=== PATIENT | female | born 1960 | race Caucasian/White ===

== ENCOUNTER → 2019-09-23 09:55 | Outpatient (BNVA) | payer MEDICAID, SELFPAY | PROVIDERS: Family Provider Nurse Practitioner Family; PCP Nurse Practitioner Family; Visit Provider Nurse Practitioner | DX: M54.5 Low back pain (principal); M47.12 Other spondylosis with myelopathy, cervical region; M47.22 Other spondylosis with radiculopathy, cervical region; Z79.891 Long term (current) use of opiate analgesic | CPT/HCPCS: 99213; 99214 ==

== ENCOUNTER → 2019-11-24 14:28 | Outpatient (BNVA) | payer MEDICAID, SELFPAY | PROVIDERS: Family Provider Nurse Practitioner Family; PCP Nurse Practitioner Family; Visit Provider Anesthesiology | DX: M19.90 Unspecified osteoarthritis, unspecified site (principal); M25.50 Pain in unspecified joint; M47.12 Other spondylosis with myelopathy, cervical region; M47.22 Other spondylosis with radiculopathy, cervical region; M54.5 Low back pain; Z79.891 Long term (current) use of opiate analgesic | CPT/HCPCS: 99214 ==

== ENCOUNTER → 2020-03-14 13:55 | Outpatient (BNVA) | payer MEDICAID, SELFPAY | PROVIDERS: Family Provider Nurse Practitioner Family; PCP Nurse Practitioner Family; Visit Provider Anesthesiology | DX: M54.5 Low back pain (principal); M47.12 Other spondylosis with myelopathy, cervical region; M47.22 Other spondylosis with radiculopathy, cervical region; M25.50 Pain in unspecified joint; Z79.891 Long term (current) use of opiate analgesic | CPT/HCPCS: 99214 ==

== ENCOUNTER → 2020-04-03 09:01 | Outpatient (BNVA) | payer MEDICAID, SELFPAY | PROVIDERS: Family Provider Nurse Practitioner Family; PCP Nurse Practitioner Family; Visit Provider Anesthesiology | DX: M54.5 Low back pain (principal); M47.12 Other spondylosis with myelopathy, cervical region; M47.22 Other spondylosis with radiculopathy, cervical region; Z79.891 Long term (current) use of opiate analgesic | CPT/HCPCS: 99213; 99214 ==

== ENCOUNTER 2020-05-18 08:38 | Outpatient (CLI) | payer MEDICAID, SELFPAY ==
--- NOTE | 2020-05-18 08:44 | MM_ITS ---
WS: [id number] BILATERAL DIGITAL SCREENING MAMMOGRAPHY WITH CAD CLINICAL INFORMATION: SCREENING HISTORY: Screening mammogram. No current complaints. COMPARISON: TECHNIQUE: Bilateral CC and MLO views. FINDINGS: Scattered fibroglandular densities bilaterally. No suspicious focal mass, asymmetry, calcifications, or architectural distortion. No evidence of malignancy. Punctate calcification right breast. MM/[place] [id number] IMPRESSION: BI-RADS: 1-Negative FOLLOW UP: 1 Year Follow-up Recommend return to annual screening mammography.
== END 2020-05-18 08:39 | disposition home or self-care (01) ==
LOC: RADSHAW 08:41
PROVIDERS: PCP Nurse Practitioner Family; Visit Provider Nurse Practitioner Family
DX: Z12.31 Encounter for screening mammogram for malignant neoplasm of breast (principal)
CPT/HCPCS: 77067

== ENCOUNTER → 2020-05-31 09:24 | Outpatient (BNVA) | payer MEDICAID, SELFPAY | PROVIDERS: Family Provider Nurse Practitioner Family; PCP Nurse Practitioner Family; Visit Provider Nurse Practitioner | DX: M54.41 Lumbago with sciatica, right side (principal); M54.42 Lumbago with sciatica, left side; M47.12 Other spondylosis with myelopathy, cervical region; M47.22 Other spondylosis with radiculopathy, cervical region; M79.7 Fibromyalgia; M06.9 Rheumatoid arthritis, unspecified; Z79.891 Long term (current) use of opiate analgesic | CPT/HCPCS: 99213; 99214 ==

== ENCOUNTER → 2020-07-03 09:31 | Outpatient (BNVA) | payer MEDICAID, SELFPAY | PROVIDERS: Family Provider Nurse Practitioner Family; PCP Nurse Practitioner Family; Visit Provider Anesthesiology | DX: M54.5 Low back pain (principal); M47.12 Other spondylosis with myelopathy, cervical region; M47.22 Other spondylosis with radiculopathy, cervical region; M79.7 Fibromyalgia; Z79.891 Long term (current) use of opiate analgesic | CPT/HCPCS: 99214 ==

== ENCOUNTER → 2020-08-28 12:27 | Outpatient (BNVA) | payer MEDICAID, SELFPAY | PROVIDERS: Family Provider Nurse Practitioner Family; PCP Nurse Practitioner Family; Visit Provider Nurse Practitioner | DX: M54.5 Low back pain (principal); M70.62 Trochanteric bursitis, left hip; M47.12 Other spondylosis with myelopathy, cervical region; M47.22 Other spondylosis with radiculopathy, cervical region; M79.7 Fibromyalgia; M25.562 Pain in left knee; M06.9 Rheumatoid arthritis, unspecified; Z79.891 Long term (current) use of opiate analgesic; Y93.9 Activity, unspecified | CPT/HCPCS: 99214 ==

== ENCOUNTER 2020-08-31 08:32 | Outpatient (CLI) | payer MEDICAID, SELFPAY ==
--- NOTE | 2020-08-31 08:39 | XR_ITS ---
WS: [id number] Bilateral hips, AP and frog leg views, 08/31/2020 Clinical Data: M25.50 - Pain in unspecified joint Comparison: Right hip, 12/13/2013. Left hip, 12/13/2013. Findings: Right hip: There is a prominent lateral lip of the right acetabulum. No fractures or dislocations are seen. No n arrowing, erosion or sclerosis is noted. The adjacent right pelvis is unremarkable. The right SI join t and pubic symphysis are normal. The soft tissues unremarkable. Left hip: There is a prominent lateral lip of the left acetabulum. No fractures or dislocations are seen. No na rrowing, erosion or sclerosis is noted. The adjacent left pelvis is unremarkable. The left SI joints normal. The soft tissues are unremarkable. XR/XR hip BI 3-4V wo/w pel [id number] Impression: Bilateral acetabular osteoarthritic lips.
--- NOTE | 2020-08-31 08:39 | XR_ITS ---
WS: [id number] AP views of both knees standing, 08/31/2020 Clinical Data: M25.562 - Pain in left knee Comparison: Right knee and left knee, 12/13/2013. Findings: The AP views of both knees are unremarkable. There is no joint space narrowing. No erosion or scleros is is seen. The AP views of the patellas are normal. The soft tissues are unremarkable. XR/[place] [id number] Impression: Negative AP views of both knees.
== END 2020-08-31 08:33 | disposition home or self-care (01) ==
LOC: RADWPI 08:36
PROVIDERS: PCP Nurse Practitioner Family; Visit Provider Nurse Practitioner
DX: M25.50 Pain in unspecified joint (principal); M70.62 Trochanteric bursitis, left hip; M25.562 Pain in left knee
CPT/HCPCS: 73522; 73565

== ENCOUNTER → 2020-09-27 09:35 | Outpatient (BNVA) | payer MEDICAID, SELFPAY | PROVIDERS: PCP Nurse Practitioner Family; Visit Provider Anesthesiology | DX: G89.29 Other chronic pain (principal); M53.3 Sacrococcygeal disorders, not elsewhere classified; M70.62 Trochanteric bursitis, left hip; Y93.9 Activity, unspecified; Z79.891 Long term (current) use of opiate analgesic | CPT/HCPCS: G0260; J1040; J3490 ==

== ENCOUNTER → 2020-11-07 08:51 | Outpatient (BNVA) | payer MEDICAID, SELFPAY | PROVIDERS: PCP Nurse Practitioner Family; Visit Provider Anesthesiology | DX: G89.29 Other chronic pain (principal); M47.12 Other spondylosis with myelopathy, cervical region; M47.22 Other spondylosis with radiculopathy, cervical region; M54.5 Low back pain; M79.7 Fibromyalgia; M53.3 Sacrococcygeal disorders, not elsewhere classified; Z79.899 Other long term (current) drug therapy; Z79.891 Long term (current) use of opiate analgesic | CPT/HCPCS: 99214 ==

== ENCOUNTER → 2021-01-04 12:35 | Outpatient (BNVA) | payer MEDICAID, SELFPAY | PROVIDERS: PCP Nurse Practitioner Family; Visit Provider Nurse Practitioner | DX: G89.29 Other chronic pain (principal); M47.12 Other spondylosis with myelopathy, cervical region; M47.22 Other spondylosis with radiculopathy, cervical region; M54.5 Low back pain; M79.7 Fibromyalgia; M53.3 Sacrococcygeal disorders, not elsewhere classified; M70.62 Trochanteric bursitis, left hip; Y93.9 Activity, unspecified; M25.562 Pain in left knee; M06.9 Rheumatoid arthritis, unspecified; Z79.891 Long term (current) use of opiate analgesic | CPT/HCPCS: 99213 ==

== ENCOUNTER → 2021-03-19 13:19 | Outpatient (BNVA) | payer MEDICAID, SELFPAY | PROVIDERS: PCP Nurse Practitioner Family; Visit Provider Nurse Practitioner | DX: G89.29 Other chronic pain (principal); M70.62 Trochanteric bursitis, left hip; M54.5 Low back pain; M47.12 Other spondylosis with myelopathy, cervical region; M47.22 Other spondylosis with radiculopathy, cervical region; M53.3 Sacrococcygeal disorders, not elsewhere classified; Y93.9 Activity, unspecified; Z79.891 Long term (current) use of opiate analgesic | CPT/HCPCS: 99213 ==

== ENCOUNTER → 2021-05-09 10:39 | Outpatient (BNVA) | payer MEDICAID, SELFPAY | PROVIDERS: PCP Nurse Practitioner Family; Visit Provider Nurse Practitioner | DX: G89.29 Other chronic pain (principal); M54.5 Low back pain; M70.62 Trochanteric bursitis, left hip; M25.562 Pain in left knee; M06.9 Rheumatoid arthritis, unspecified; M79.7 Fibromyalgia; M47.12 Other spondylosis with myelopathy, cervical region; M47.22 Other spondylosis with radiculopathy, cervical region; M53.3 Sacrococcygeal disorders, not elsewhere classified; Y93.9 Activity, unspecified; Z79.891 Long term (current) use of opiate analgesic | CPT/HCPCS: 99214 ==

== ENCOUNTER → 2021-06-20 13:04 | Outpatient (BNVA) | payer MEDICAID, SELFPAY | PROVIDERS: PCP Nurse Practitioner Family; Visit Provider Internal Medicine | DX: M06.9 Rheumatoid arthritis, unspecified (principal); Z79.899 Other long term (current) drug therapy; Z11.59 Encounter for screening for other viral diseases; Z11.1 Encounter for screening for respiratory tuberculosis; M54.2 Cervicalgia; M54.9 Dorsalgia, unspecified; G89.29 Other chronic pain | CPT/HCPCS: 36415; 99203; 99204 ==

== ENCOUNTER 2021-06-20 15:14 | Outpatient (CLI) | payer MEDICAID, SELFPAY ==
--- NOTE | 2021-06-20 15:30 | XR_ITS ---
WS: [email or web address] XR hand LT 2V [id number] REASON FOR EXAM: M25.50 - Pain in unspecified joint FINDINGS: Mild changes of osteoarthritis in the PIP and DIP joints of the fingers with mild joint space narrowi ng and mild osteophytic spurring. Similar mild changes seen in the joints of the thumb. No other significant bony or joint abnormality. XR/XR hand LT 2V [id number] IMPRESSION: Mild osteoarthritis left hand as above.
--- NOTE | 2021-06-20 15:30 | XR_ITS ---
WS: [email or web address] XR hand RT 2V [id number] REASON FOR EXAM: M25.50 - Pain in unspecified joint FINDINGS: There are mild changes of osteoarthritis in the DIP and PIP joints of the fingers with mild joint spa ce narrowing and osteophytic spurring. Similar arthropathic changes are seen in the joints of the thumb. No focal bone abnormality. No soft tissue abnormality. XR/XR hand RT 2V [id number] IMPRESSION: Mild osteoarthritis the right hand as above.
== END 2021-06-20 15:15 | disposition home or self-care (01) ==
LOC: RAD 15:19
PROVIDERS: PCP Nurse Practitioner Family; Visit Provider Internal Medicine
DX: M25.50 Pain in unspecified joint (principal)
CPT/HCPCS: 73120; 80053; 85025; 86200; 86431; 86480; 86704; 86803; 87340

== ENCOUNTER 2021-06-27 13:40 | Outpatient (CLI) | payer MEDICAID, SELFPAY ==
--- NOTE | 2021-06-27 13:46 | MM_ITS ---
WS: [id number] BILATERAL SCREENING DIGITAL MAMMOGRAM WITH CAD HISTORY: SCREENING COMPARISON: 05/18/2020 and 02/10/2019 Bilateral CC and MLO views submitted. Computer aided detection analyzed. Breast composition: There are scattered areas of fibroglandular density. No suspicious masses, microc alcifications or architectural distortion. Benign calcification in the central RIGHT breast. MM/[place] [id number] IMPRESSION: BI-RADS: 2-Benign FOLLOW UP: 1 Year Follow-up
== END 2021-06-27 13:41 | disposition home or self-care (01) ==
LOC: RADSHAW 13:44
PROVIDERS: PCP Nurse Practitioner Family; Visit Provider Nurse Practitioner Family
DX: Z12.31 Encounter for screening mammogram for malignant neoplasm of breast (principal)
CPT/HCPCS: 77067

== ENCOUNTER → 2021-07-08 14:15 | Outpatient (BNVA) | payer MEDICAID, SELFPAY | PROVIDERS: PCP Nurse Practitioner Family; Visit Provider Internal Medicine | DX: M25.50 Pain in unspecified joint (principal); M79.7 Fibromyalgia; Z79.899 Other long term (current) drug therapy | CPT/HCPCS: 36415; 82306; 82533; 82550; 82728; 83540; 83735; 84100; 99214 ==

== ENCOUNTER → 2021-07-18 12:48 | Outpatient (BNVA) | payer MEDICAID, SELFPAY | PROVIDERS: PCP Nurse Practitioner Family; Visit Provider Anesthesiology | DX: M47.12 Other spondylosis with myelopathy, cervical region (principal); M47.22 Other spondylosis with radiculopathy, cervical region; M53.3 Sacrococcygeal disorders, not elsewhere classified; Z79.899 Other long term (current) drug therapy; Z79.891 Long term (current) use of opiate analgesic | CPT/HCPCS: 99214 ==

== ENCOUNTER → 2021-09-18 12:53 | Outpatient (BNVA) | payer MEDICAID, SELFPAY | PROVIDERS: PCP Nurse Practitioner Family; Visit Provider Anesthesiology | DX: G89.29 Other chronic pain (principal); M54.50 Low back pain, unspecified; M47.12 Other spondylosis with myelopathy, cervical region; M47.22 Other spondylosis with radiculopathy, cervical region; M53.3 Sacrococcygeal disorders, not elsewhere classified; G62.9 Polyneuropathy, unspecified; Z79.899 Other long term (current) drug therapy; Z79.891 Long term (current) use of opiate analgesic | CPT/HCPCS: 99214 ==

== ENCOUNTER 2021-10-07 12:01 | Outpatient (CLI) | payer MEDICAID, SELFPAY ==
--- NOTE | 2021-10-07 12:05 | XR_ITS ---
WS: [email or web address] SI JOINTS TECHNIQUE: 3 views of the sacroiliac joints CLINICAL INFORMATION: L40.9 - Psoriasis, unspecified COMPARISON: None. FINDINGS: Mild degenerative arthritis both sacroiliac joints with slight hypertrophic changes. No significant p eriarticular erosions. Mild degenerative narrowing both hips with hypertrophic spurring about the lorena tabulum. XR/XR sacroiliac jts m 3V [id number] IMPRESSION: 1. Mild degenerative arthritis both sacroiliac joints with slight hypertrophic changes. 2. No significant periarticular erosions
[2021-10-07 13:51] LABS: C Reactive Protein 2.9 mg/L (0.0-4.9); Thyroid Stimulating Hormone 2.11 uIU/mL (0.27-4.20)
[2021-10-07 13:52] LABS: Erythrocyte Sedimentation Rate 10 mm/hr (0-15)
[2021-10-08 12:29] LABS: COMPLEMENT COMPONENT C3C 170 mg/dL (83-193); COMPLEMENT COMPONENT C4C 26 mg/dL (15-57)
[2021-10-08 14:27] LABS: THYROID PEROXIDASE ANTIBODIES 1 IU/mL (<9)
[2021-10-08 15:23] LABS: CENTROMERE B ANTIBODY <1.0 NEG AI (<1.0 NEG); JO-1 ANTIBODY <1.0 NEG AI (<1.0 NEG); RNP ANTIBODY <1.0 NEG AI (<1.0 NEG); SCL-70 ANTIBODY <1.0 NEG AI (<1.0 NEG); SJOGREN'S ANTIBODY (SS-A) <1.0 NEG AI (<1.0 NEG); SM ANTIBODY <1.0 NEG AI (<1.0 NEG); SS-B <1.0 NEG AI (<1.0 NEG)
[2021-10-09 13:04] LABS: COMPLEMENT, TOTAL (CH50) 57 U/mL (31-60)
[2021-10-10 08:22] LABS: ANA PATTERN Nuclear, Speckled; ANA SCREEN, IFA POSITIVE (NEGATIVE); ANA TITER 1:40 titer
[2021-10-10 13:13] LABS: HLA-B27 NEGATIVE (NEGATIVE)
[2021-10-11 10:37] LABS: DNA AB (DS) CRITHIDIA,IFA NEGATIVE (NEGATIVE)
== END 2021-10-07 12:02 | disposition home or self-care (01) ==
LOC: RAD 12:04
PROVIDERS: PCP Nurse Practitioner Family; Visit Provider Internal Medicine
DX: M06.9 Rheumatoid arthritis, unspecified (principal); R21 Rash and other nonspecific skin eruption; Z85.41 Personal history of malignant neoplasm of cervix uteri; Z90.710 Acquired absence of both cervix and uterus; G89.29 Other chronic pain; L40.9 Psoriasis, unspecified; M53.3 Sacrococcygeal disorders, not elsewhere classified; M46.1 Sacroiliitis, not elsewhere classified
CPT/HCPCS: 36415; 72202; 83516; 84443; 85651; 86140; 86160; 86162; 86235; 86255; 86376; 86812; 99214

== ENCOUNTER → 2021-11-13 14:20 | Outpatient (BNVA) | payer MEDICAID, SELFPAY | PROVIDERS: PCP Nurse Practitioner Family; Visit Provider Internal Medicine | DX: M19.90 Unspecified osteoarthritis, unspecified site (principal); M53.3 Sacrococcygeal disorders, not elsewhere classified; G89.29 Other chronic pain | CPT/HCPCS: 99214 ==

== ENCOUNTER → 2021-11-20 14:31 | Outpatient (BNVA) | payer MEDICAID, SELFPAY | PROVIDERS: PCP Nurse Practitioner Family; Visit Provider Internal Medicine Cardiovascular Disease | DX: R07.9 Chest pain, unspecified (principal); R00.2 Palpitations; M06.9 Rheumatoid arthritis, unspecified; R53.83 Other fatigue; R06.02 Shortness of breath; Z87.891 Personal history of nicotine dependence | CPT/HCPCS: 99204 ==

== ENCOUNTER 2021-12-30 13:42 | Outpatient (CLI) | payer MEDICAID, SELFPAY ==
--- NOTE | 2021-12-30 14:15 | USCV_ITS ---
Jody Grubbs Age: 61 Gender: F : 1960 Exam Date: 12/30/2021 14:20 Ordering Phys: Yuridia Chan MD ([email or web address]) Technologist: Exam Location: [facility] – [place] Indication: palp BP: 132 / 76 HR: 84 Rhythm: Sinus Technical Quality: Adequate MEASUREMENTS (Male / Female) Normal Values 2D ECHO LV Diastolic Diameter PLAX 4.0 cm 4.2 - 5.9 / 3.9 - 5.3 cm LV Systolic Diameter PLAX 2.7 cm IVS Diastolic Thickness 1.1 cm 0.6 - 1.0 / 0.6 - 0.9 cm IVS Systolic Thickness 1.2 cm LVPW Diastolic Thickness 1.1 cm 0.6 - 1.0 / 0.6 - 0.9 cm LVPW Systolic Thickness 1.4 cm LVOT Diameter 2.0 cm LV Ejection Fraction 2D Teich 61.7 % LV Ejection Fraction MOD 2C 73.5 % LV Ejection Fraction 2C AL 73.5 % LA Diameter 3.5 cm LA Width 3.3 cm LA Height 4.1 cm RA Width 3.4 cm RA Height 3.9 cm Aorta at Sinotubular Diameter 2.3 cm M-MODE Aortic Annulus Diameter 2.7 cm LA Ao Ratio MM 1.5 MV E Point Septal Separation 0.7 cm DOPPLER MV Area PHT 5.0 cm squared Mitral E to A Ratio 0.7 MV E' Velocity 29.5 cm/s Mitral E to MV E' Ratio 6.2 Mitral E to LV E' Lateral Ratio 5.8 Mitral E to LV E' Septal Ratio 6.8 TR Peak Velocity 191.0 cm/s TR Peak Gradient 14.6 mmHg TV Peak E Velocity 89.0 cm/s Right Atrial Pressure 3.0 mmHg Pulmonary Artery Systolic Pressu 17.6 mmHg PV Peak Velocity 158.0 cm/s FINDINGS Left Ventricle Normal left ventricular size and systolic function, EF 72 %. No regional wall motion abnormalities. Right Ventricle The right ventricle is normal in size and function. Right Atrium The right atrium is normal in size. Left Atrium The left atrium is normal in size. Mitral Valve Trace mitral valve regurgitation. Aortic Valve No gross abnormalities noted Tricuspid Valve No gross abnormalities noted Pulmonic Valve No gross abnormalities noted Pericardium Normal pericardium without effusion. Aorta Normal ascending aorta dimension. CONCLUSIONS Normal left ventricular size and systolic function, EF 72 %. No regional wall motion abnormalities. Normal cardiac chamber sizes Trace mitral valve regurgitation. There is no pericardial effusion. There are no intracardiac masses. No previous study is available for comparison. Dr Yuridia Chan MD [facility] (Electronically Signed) Final Date: 30 December 2021 17:19 S
== END 2021-12-30 13:43 | disposition home or self-care (01) ==
LOC: RAD 13:42
PROVIDERS: PCP Nurse Practitioner Family; Visit Provider Internal Medicine Cardiovascular Disease
DX: I34.0 Nonrheumatic mitral (valve) insufficiency (principal); R06.02 Shortness of breath; R06.00 Dyspnea, unspecified
CPT/HCPCS: 93306

== ENCOUNTER 2022-01-06 07:37 | Outpatient (CLI) | payer MEDICAID, SELFPAY ==
--- NOTE | 2022-01-06 07:47 | MR_ITS ---
WS: [id number] MRI LUMBAR SPINE NONCONTRAST TECHNIQUE: Sagittal T1, T2 and STIR imaging. Axial T1 and T2 imaging. CLINICAL INFORMATION: VERTEBROGENIC LOW BACK PAIN COMPARISON: April 05, 2008 FINDINGS: Mild lumbar curve. No acute compression. No high-grade central canal stenosis. L1-L2: Normal L2-L3: Normal. L3-L4: Mild annular bulging. Slight effacement of ventral thecal sac. LEFT foraminal protrusion with mild LEFT foraminal narrowing. Slight impingement on the exiting LEFT L3 nerve root. RIGHT foramen is patent. Mild facet arthropathy. L4-L5: Mild annular bulging. Slight effacement of ventral thecal sac. Mild LEFT foraminal narrowing. Spinal canal and RIGHT foramen are patent. Mild to moderate facet arthropathy. L5-S1: Minimal disc bulging. Moderate facet arthropathy. Spinal canal and foramen are patent. Hypertrophic changes LEFT sacroiliac joint. Visualized pelvic bony structures: Normal. Paravertebral soft tissues: Normal. MR/MR lumbar spine wo con* [id number] IMPRESSION: 1. Small LEFT foraminal protrusion L3-L4 impinges the exiting LEFT L3 nerve ro ot with mild LEFT foraminal narrowing. Recommend correlation LEFT L3 nerve root symptoms. This is new from 2008 2. Mild LEFT L4-L5 foraminal narrowing. 3. Moderate facet arthropathy worse at RIGHT L5-S1. 4. Hypertrophic changes LEFT sacroiliac joint.
--- NOTE | 2022-01-06 07:47 | XR_ITS ---
WS: [id number] Lumbar spine with flexion, extension, and neutral lateral, 01/06/2022 Clinical Data: VERTEBROGENIC LOW BACK PAIN Comparison: Lumbar spine, 08/16/2015. Findings: No compression fractures or subluxation is seen. No disc space narrowing is seen. No limitation of motion or subluxation is seen. There are upper abdominal clips probably from a cholecystectomy. XR/XR lumbar spine f/e only [id number] Impression: Negative lateral lumbar spine.
== END 2022-01-06 07:38 | disposition home or self-care (01) ==
LOC: RAD 07:38
PROVIDERS: PCP Nurse Practitioner Family; Visit Provider Nurse Practitioner
DX: M54.51 Vertebrogenic low back pain (principal); M51.26 Other intervertebral disc displacement, lumbar region; M48.061 Spinal stenosis, lumbar region without neurogenic claudication; M47.817 Spondylosis without myelopathy or radiculopathy, lumbosacral region
CPT/HCPCS: 72120; 72148

== ENCOUNTER → 2022-03-04 14:08 | Outpatient (BNVA) | payer MEDICAID, SELFPAY | PROVIDERS: PCP Nurse Practitioner Family; Visit Provider Internal Medicine Cardiovascular Disease | DX: R00.2 Palpitations (principal); R07.89 Other chest pain; R06.02 Shortness of breath; R53.83 Other fatigue | CPT/HCPCS: 99213; 99214 ==

== ENCOUNTER 2022-06-30 07:56 | Outpatient (CLI) | payer MEDICAID, SELFPAY ==
--- NOTE | 2022-06-30 08:11 | MM_ITS ---
WS: [id number] BILATERAL SCREENING DIGITAL TOMOSYNTHESIS MAMMOGRAM WITH CAD HISTORY: SCREEN COMPARISON: 06/27/2021, 05/18/2020 Bilateral CC and MLO views with tomosynthesis and synthetic mammography submitted. Computer aided det ection analyzed. Breast composition: There are scattered areas of fibroglandular density. No suspicious masses, microc alcifications or architectural distortion. MM/[place] [id number] IMPRESSION: BI-RADS: 2-Benign FOLLOW UP: 1 Year Follow-up
== END 2022-06-30 07:57 | disposition home or self-care (01) ==
LOC: RAD 07:56
PROVIDERS: PCP Nurse Practitioner Family; Visit Provider Nurse Practitioner Family
DX: Z12.31 Encounter for screening mammogram for malignant neoplasm of breast (principal)
CPT/HCPCS: 77063; 77067

== ENCOUNTER 2022-10-23 09:06 | Outpatient (CLI) | payer MEDICAID, SELFPAY ==
--- NOTE | 2022-10-23 09:11 | US_ITS ---
WS: [email or web address] ULTRASOUND ABDOMEN LIMITED CLINICAL INFORMATION: ABDOMINAL WALL BULGE COMPARISON: None. FINDINGS: In the area of clinical concern, upper midline abdomen, there is an epigastric abdominal wall hernia containing fatty tissue. No herniated bowel. Hernia mouth measures approximately 2.5 x 1.8 cm. Hernia aron fat measures 3.8 x 4.7 x 2.3 cm No associated fluid collections. Motion is seen with Valsalva. No other suspicious findings. Findings can be further evaluated with CT abdomen pelvis for better anatomic detail. IMPRESSION: 1. Fat-containing epigastric abdominal wall hernia in the area of concern containing fatty tissue. N o visualized herniated bowel. 2. No associated fluid collections. 3. Hernia mouth measures 2.5 x 1.8 CM.
== END 2022-10-23 09:07 | disposition home or self-care (01) ==
LOC: RAD 09:07
PROVIDERS: PCP Nurse Practitioner Family; Visit Provider Nurse Practitioner Family
DX: R19.00 Intra-abdominal and pelvic swelling, mass and lump, unspecified site (principal)
CPT/HCPCS: 76705

== ENCOUNTER → 2022-11-18 08:30 | Outpatient (BNVA) | payer MEDICAID, SELFPAY | PROVIDERS: PCP Nurse Practitioner Family; Referring Provider Nurse Practitioner Family; Visit Provider Surgery | DX: K43.2 Incisional hernia without obstruction or gangrene (principal) | CPT/HCPCS: 99203 ==

== ENCOUNTER 2022-12-22 05:50 | Day surgery (SDC) | payer MEDICAID, SELFPAY ==
[2022-12-19 10:54] VITALS: BMI 36.3
[2022-12-22] VITALS (16 sets, daily range): BP systolic 109–162; BP diastolic 53–98; PULSE 70–80; RESP 16–18; TEMP 36.1–36.9; O2SAT 92–98
[2022-12-22] MEDS: sodium chloride 0.9% 1,000 ML 30 ML IV (06:18)
--- NOTE | 2022-12-22 06:39 | P.HP_ITS ---
Providers/Chief Complaint Primary Care Provider: Rachelle Liu APN Chief Complaint: K43.2 History of Present Illness Jody Grubbs is a 62 year old female here for Laparoscopic repair of incisional hernia repair with mesh Medications/Allergies Home Medications Medication Instructions Recorded Confirmed Last Taken Type escitalopram oxalate 10 mg tablet 10 mg PO ONCE 09/22/19 12/22/22 12/20/22 22:00 History (Lexapro) escitalopram oxalate 20 mg tablet 20 mg PO ONCE 09/22/19 12/22/22 12/21/22 08:00 History (Lexapro) oxycodone 10 mg tablet 10 mg PO TID PRN pain 30 days #70 09/18/21 12/22/22 12/21/22 18:00 Rx tabs pregabalin 100 mg capsule 100 mg PO BID neuropathy 30 days 09/18/21 12/22/22 12/21/22 08:00 Rx #60 caps cetirizine 10 mg tablet 10 mg PO DAILY 11/20/21 12/22/22 12/21/22 History fenofibrate 160 mg tablet 160 mg PO DAILY 11/20/21 12/22/22 12/21/22 12:00 History omeprazole 20 mg capsule,delayed 20 mg PO PRN PRN Heartburn 11/20/21 12/22/22 Unknown History release pravastatin 10 mg tablet 10 mg PO DAILY 11/20/21 12/22/22 12/20/22 History ropinirole 1 mg tablet 1 mg PO DAILY PRN Restless Leg(S) 11/20/21 12/19/22 Unknown History albuterol sulfate 90 mcg/actuation 2 puff inhalation QID PRN 01/29/22 12/22/22 12/20/22 Rx aerosol inhaler (ProAir HFA) shortness of breath or wheezing #8.5 grams budesonide-formoterol HFA 160 2 puff inhalation Q12H #10.2 grams 01/29/22 12/22/22 12/21/22 Rx mcg-4.5 mcg/actuation aerosol inhaler (Symbicort) levothyroxine 100 mcg tablet 100 mcg PO DAILY 03/04/22 12/22/22 12/21/22 08:00 History acyclovir 400 mg tablet 400 mg PO TID PRN Rash 12/22/22 12/22/22 Unknown History Allergies Allergy/AdvReac Type Severity Reaction Status Date / Time Sulfa (Sulfonamide AdvReac unknown Verified 12/22/22 06:01 Antibiotics) trazodone AdvReac makes Verified 12/22/22 06:01 her mean PFSH Acute PFSH: Medical History Arthralgia Cervical spondylosis with myelopathy and radiculopathy Chronic left SI joint pain Encounter for long-term opiate analgesic use Long-term use of high-risk medication continue to monitor use of medication Lumbar spine pain Surgical History Hx of section Hx of cholecystectomy Hx of dilation and curettage S/P hysterectomy Cervical cancer S/P tubal ligation Family History Mother , M/I CAD (coronary artery disease), Onset Age: 60 Hyperlipidemia Hypertension Rheumatoid arthritis Myocardial infarction Father Stroke Daughter Rheumatoid arthritis Family/Other Cancer Denies family history of Diabetes Clotting disorder Dementia Chronic kidney disease (CKD) Suicide Anesthesia complication Bleeding disorder Lung disease Social History Smoking and tobacco status: former smoker Second hand smoke exposure: No Alcohol intake: never Vitals/I&O/Wt Last Vital Signs Temp 98.4 F 12/22/22 06:12 Pulse 70 12/22/22 06:12 Resp 17 12/22/22 06:12 BP 151/76 12/22/22 06:12 Pulse Ox 96 12/22/22 06:12 O2 Del Method 12/22/22 06:12 A&P Assessment and plan (1) Incisional hernia: Plan Laparoscopic repair of incisional hernia repair with mesh Attestations Medical Necessity Statement*: Home Coding Level of Care Code Acute Code for [facility] Diagnoses Incisional hernia K43.2
--- NOTE | 2022-12-22 07:03 | P.ANESASSM_ITS ---
Pre-Anesthetic Assessment Height/Weight: Height 1.52 m Weight 84.368 kg Temp Pulse Resp BP Pulse Ox O2 Del Method 98.4 F 70 17 151/76 96 12/22/22 06:12 12/22/22 06:12 12/22/22 06:12 12/22/22 06:12 12/22/22 06:12 12/22/22 06:12 Preop Diagnosis: Incisional hernia Operation Date: 12/22/22 07:00 Proposed Procedures p lap incisional hernia repair w mesh 4959,K43.2(Not Applicable) - Gurvinder Almonte DO Familial anesthetic complications: None Was Beta Raheem taken within 24 hours: N/A Was Clonidine taken within 24 hours: N/A Last intake: Intake Last Liquid Date 12/21/22 Last Liquid Time 23:00 Last Solid Date 12/21/22 Last Solid Time 20:00 Social No alcohol and No tobacco Exam alert, oriented x 3, clear to auscultation bilaterally and regular rate & rhythm Airway Mallampati: Class III Dentition: full Pulmonary Asthma hx bronchitis CV/HEM Patient's insurance has denied stress testing twice. Spoke with Dr. Chan regarding risk of proceeding. He states that echo and holter results are re-assuring, but an element of unknown risk of CAD exists. States if patieint remains asymptomatic, its reasonable to proceed if patient is accepting of unknown risk. I had converstion with patient regarding the lack of stress test and Dr. Chan's sentiments of reassuring prior cardiac testing, but unknown risk of CAD given lack of stress test. I offered her option of postponing procedure to await stress test or proceeding today with unknown risk. Patient chose to proceed today, especially given insurance's denial of stress test twice. 12/30/21?CV. echo complete ?Normal left ventricular size and systolic function, EF 72 %. ?No regional wall motion abnormalities. ?Normal cardiac chamber sizes ?Trace mitral valve regurgitation. ?There is no pericardial effusion. ?There are no intracardiac masses. ?No previous study is available for comparison. ?06/28/21 Holter Monitor 1) The predominant rhythm was sinus bradycardia to sinus tachycardia with 1st degree AVB. 2) The Maximum Heart Rate recorded was 117 bpm, Day :44:47 pm, the GI Gastroesophageal Reflux Disease Metabolic Morbid Obesity and Thyroid Disease [facility] [place] Rheumatoid Arthritis Anesthetic Plan ASA status: 3 Anesthesia: General Risk of > 500 ml blood loss (7ml/kg in children): No Medications/Allergies Home Medications Medication Instructions Recorded Confirmed Last Taken Type escitalopram oxalate 10 mg tablet 10 mg PO ONCE 09/22/19 12/22/22 12/20/22 22:00 History (Lexapro) escitalopram oxalate 20 mg tablet 20 mg PO ONCE 09/22/19 12/22/22 12/21/22 08:00 History (Lexapro) oxycodone 10 mg tablet 10 mg PO TID PRN pain 30 days #70 09/18/21 12/22/22 12/21/22 18:00 Rx tabs pregabalin 100 mg capsule 100 mg PO BID neuropathy 30 days 09/18/21 12/22/2206/06 08:00 Rx #60 caps cetirizine 10 mg tablet 10 mg PO DAILY 11/20/21 12/22/22 12/21/22 History fenofibrate 160 mg tablet 160 mg PO DAILY 11/20/21 12/22/22 12/21/22 12:00 History omeprazole 20 mg capsule,delayed 20 mg PO PRN PRN Heartburn 11/20/21 12/22/22 Unknown History release pravastatin 10 mg tablet 10 mg PO DAILY 11/20/21 12/22/22 12/20/22 History ropinirole 1 mg tablet 1 mg PO DAILY PRN Restless Leg(S) 11/20/21 12/19/22 Unknown History albuterol sulfate 90 mcg/actuation 2 puff inhalation QID PRN 01/29/22 12/22/22 12/20/22 Rx aerosol inhaler (ProAir HFA) shortness of breath or wheezing #8.5 grams budesonide-formoterol HFA 160 2 puff inhalation Q12H #10.2 grams 01/29/22 12/22/22 12/21/22 Rx mcg-4.5 mcg/actuation aerosol inhaler (Symbicort) levothyroxine 100 mcg tablet 100 mcg PO DAILY 03/04/22 12/22/22 12/21/22 08:00 History acyclovir 400 mg tablet 400 mg PO TID PRN Rash 12/22/22 12/22/22 Unknown History Allergies Allergy/AdvReac Type Severity Reaction Status Date / Time Sulfa (Sulfonamide AdvReac unknown Verified 12/22/22 06:01 Antibiotics) trazodone AdvReac makes Verified 12/22/22 06:01 her mean Current Medications Generic Name Dose Route Start Last Admin Trade Name Alissa PRN Reason Stop Dose Admin Sodium Chloride 1,000 mls @ 30 mls/hr 12/22/22 06:00 12/22/22 06:18 Sodium Chloride 0.9% IV 12/23/22 05:59 30 mls/hr .Q24H GLYNN Administration PFSH Anesthesia Medical History Arthralgia Cervical spondylosis with myelopathy and radiculopathy Chronic left SI joint pain Encounter for long-term opiate analgesic use Long-term use of high-risk medication continue to monitor use of medication Lumbar spine pain Surgical History Hx of section Hx of cholecystectomy Hx of dilation and curettage S/P hysterectomy Cervical cancer S/P tubal ligation Family History Mother , M/I CAD (coronary artery disease), Onset Age: 60 Hyperlipidemia Hypertension Rheumatoid arthritis Myocardial infarction Father Stroke Daughter Rheumatoid arthritis Family/Other Cancer Denies family history of Diabetes Clotting disorder Dementia Chronic kidney disease (CKD) Suicide Anesthesia complication Bleeding disorder Lung disease Social History Smoking and tobacco status: former smoker Second hand smoke exposure: No Alcohol intake: never Data Anesthesia Cardiac Studies: Echocardiogram 12/30/21 Holter Monitor 06/28/21
[2022-12-22] MEDS: ceFAZolin 2,000 MG in sodium chloride 0.9% (plus) 50 ML 100 MG IV (07:08)
[2022-12-22] MEDS: lidocaine-epi 2% 20 mL INJ INJECTION (08:03)
--- NOTE | 2022-12-22 08:11 | PM.OP ---
Operative Report Date of procedure: December 22, 2022 Pre-op diagnosis: Preop Diagnosis Incisional hernia Post-op diagnosis: same Procedure done: Laparoscopic repair of incisional hernia with mesh Implants: 11 cm round Ventralight mesh Specimens removed/disposition: Hernia sac Surgeon: Dr. Gurvinder Almonte DO Anesthesia: General Estimated blood loss (mL): 5 Complications: None apparent Brief History: This very pleasant 62-year-old female who developed an incisional hernia at her epigastric incision after a laparoscopic cholecystectomy. She desired repair. The risks and benefits were explained and documented. Procedure: Patient was wheeled into the operative room and placed on the OR table in a supine position. Abdomen was inspected prepped and draped in usual sterile fashion. Time-out was performed and all present were in agreement. A 15 blade scalp was used to make a 5 millimeter incision left upper quadrant. A Veress needle was placed into the incision and intra-abdominal insufflation was brought to 15 millimeters of mercury. A 12 millimeter trocar was placed into the left lower quadrant. The energy but device was then used to cut out the hernia sac. The hernia defect measured 1.5 cm in diameter. An 11 cm ventral light mesh was placed into the abdomen and brought up through the umbilicus using an the Kennedy-Binta. The mesh was then tacked in place in a double crown fashion. The skeleton of the mesh was removed via the left lower quadrant. The hernia sac was then removed from the abdomen via the left lower quadrant. The left lower quadrant port site was closed with an 0 Vicryl suture in a Kennedy-Binta in a [id number] fashion. Incisions were closed with 4-0 Monocryl in a subcuticular interrupted fashion. Skin glue was applied. Patient tolerated the procedure well.
[2022-12-22] MEDS: metoclopramide 5 mg/mL SDV 2 mL 10 MG IVP ×2 (08:20→08:25)
[2022-12-22] MEDS: fentaNYL 50 mcg/mL INJ 2mL IVP (08:21)
[2022-12-22] MEDS: HYDROmorphone 1 mg/mL INJ 1 mL 0.5 MG IVP (08:42)
[2022-12-22] MEDS: oxyCODONE-APAP 10-325 mg Tablet 1 TAB PO (09:31)
--- NOTE | 2022-12-22 14:34 | ANE.PACU2 ---
Inpatient post-anesthesia follow up: Airway intact: Yes Vital signs: Temperature 98.2 F Pulse Rate 77 Respiratory Rate 17 Blood Pressure 124/64 Pulse Oximetry 92 Oxygen Delivery Me thod Room Air Oxygen Flow Rate 2 Fraction of Inspir ed Oxygen Hydration adequate: Yes Nausea and vomiting: No Pain level: 1 Mental status: Baseline
== END 2022-12-22 10:05 | disposition home or self-care (01) ==
PROVIDERS: PCP Nurse Practitioner Family; Visit Provider Surgery
PROC: 0WQF4ZZ Repair Abdominal Wall, Percutaneous Endoscopic Approach (ICD-10-PCS; CPT 49650; principal; 2022-12-22 07:00)
DX: K43.2 Incisional hernia without obstruction or gangrene (principal); K21.9 Gastro-esophageal reflux disease without esophagitis; E66.01 Morbid (severe) obesity due to excess calories; Z68.36 Body mass index [BMI] 36.0-36.9, adult; M06.9 Rheumatoid arthritis, unspecified; Z87.891 Personal history of nicotine dependence
CPT/HCPCS: 49650; 88302; C1781; J0690; J1100; J1170; J1200; J2370; J2405; J2704; J2710; J2765; J3010; J3490; J7030

== ENCOUNTER → 2023-01-06 07:44 | Outpatient (BNVA) | payer MEDICAID, SELFPAY | PROVIDERS: PCP Nurse Practitioner Family; Visit Provider Surgery | DX: Z98.890 Other specified postprocedural states (principal); Z87.19 Personal history of other diseases of the digestive system | CPT/HCPCS: 99024 ==

== ENCOUNTER → 2023-01-23 11:53 | Outpatient (BNVA) | payer MEDICAID, SELFPAY | PROVIDERS: PCP Nurse Practitioner Family; Visit Provider Nurse Practitioner Family | DX: E03.9 Hypothyroidism, unspecified (principal); E78.5 Hyperlipidemia, unspecified; R73.03 Prediabetes; E66.9 Obesity, unspecified; M79.7 Fibromyalgia | CPT/HCPCS: 80053; 80061; 83036; 84443 ==

== ENCOUNTER → 2023-06-12 08:48 | Outpatient (BNVA) | payer MEDICAID, SELFPAY | PROVIDERS: PCP Nurse Practitioner Family; Referring Provider Nurse Practitioner Family; Visit Provider Nurse Practitioner Family | DX: L82.1 Other seborrheic keratosis (principal); D23.62 Other benign neoplasm of skin of left upper limb, including shoulder; D23.72 Other benign neoplasm of skin of left lower limb, including hip; L57.8 Other skin changes due to chronic exposure to nonionizing radiation; L81.4 Other melanin hyperpigmentation | CPT/HCPCS: 99203 ==

== ENCOUNTER 2023-07-15 10:45 | Outpatient (CLI) | payer MEDICAID, SELFPAY ==
--- NOTE | 2023-07-15 10:53 | MM_ITS ---
WS: [id number] BILATERAL 3D TOMOSYNTHESIS DIGITAL SCREENING MAMMOGRAPHY WITH CAD CLINICAL INFORMATION: SCREENING HISTORY: Screening mammogram. No current complaints. COMPARISON: 2021 TECHNIQUE: Bilateral CC and MLO views. FINDINGS: Scattered fibroglandular densities bilaterally. No suspicious focal mass, asymmetry, calcifications, or architectural distortion. No evidence of malignancy. Lucent centered calcification RIGHT breast. IMPRESSION: MM/[place] [id number] BI-RADS: 2-Benign FOLLOW UP: 1 Year Follow-up Recommend return to annual screening mammography.
== END 2023-07-15 10:46 | disposition home or self-care (01) ==
LOC: RAD 10:45
PROVIDERS: PCP Nurse Practitioner Family; Visit Provider Nurse Practitioner Family
DX: Z12.31 Encounter for screening mammogram for malignant neoplasm of breast (principal)
CPT/HCPCS: 77063; 77067

== ENCOUNTER → 2023-09-23 08:56 | Outpatient (BNVA) | payer MEDICAID, SELFPAY | PROVIDERS: PCP Nurse Practitioner Family; Visit Provider Nurse Practitioner Family | DX: F41.9 Anxiety disorder, unspecified (principal); F32.A Depression, unspecified; E78.1 Pure hyperglyceridemia; R73.03 Prediabetes; E03.9 Hypothyroidism, unspecified; E78.5 Hyperlipidemia, unspecified; R00.2 Palpitations; B00.9 Herpesviral infection, unspecified; J40 Bronchitis, not specified as acute or chronic; J45.909 Unspecified asthma, uncomplicated; J30.2 Other seasonal allergic rhinitis; Z79.899 Other long term (current) drug therapy | CPT/HCPCS: 80053; 80061; 83036; 84443 ==

== ENCOUNTER → 2024-03-30 13:20 | Outpatient (BNVA) | payer MEDICAID, SELFPAY | PROVIDERS: PCP Nurse Practitioner Family; Visit Provider Nurse Practitioner Family | DX: F41.9 Anxiety disorder, unspecified (principal); F32.A Depression, unspecified; E78.2 Mixed hyperlipidemia; E78.1 Pure hyperglyceridemia; R73.03 Prediabetes; E03.9 Hypothyroidism, unspecified; M79.7 Fibromyalgia; J40 Bronchitis, not specified as acute or chronic; J45.909 Unspecified asthma, uncomplicated; J30.2 Other seasonal allergic rhinitis; E78.5 Hyperlipidemia, unspecified; M47.12 Other spondylosis with myelopathy, cervical region; M47.22 Other spondylosis with radiculopathy, cervical region | CPT/HCPCS: 80053; 80061; 83036; 85025 ==

== ENCOUNTER 2024-07-22 12:46 | Outpatient (CLI) | payer MEDICAID, SELFPAY ==
--- NOTE | 2024-07-22 12:49 | MM_ITS ---
WS: [id number] BILATERAL 3D TOMOSYNTHESIS DIGITAL SCREENING MAMMOGRAPHY WITH CAD CLINICAL INFORMATION: SCREENING HISTORY: Screening mammogram. No current complaints. COMPARISON: 2022 TECHNIQUE: Bilateral CC and MLO views. FINDINGS: Scattered fibroglandular densities bilaterally. No suspicious focal mass, asymmetry, calcifications, or architectural distortion. No evidence of malignancy. Lucent centered calcification RIGHT breast. MM/MM scr BI tomosynthesis [id number] IMPRESSION: DENSITY: There are scattered areas of fibroglandular density. BI-RADS: 2 - Benign. FOLLOW UP: 1 Year Follow-up Recommend return to annual screening mammography.
== END 2024-07-22 12:47 | disposition home or self-care (01) ==
LOC: RAD 12:47
PROVIDERS: PCP Nurse Practitioner Family; Visit Provider Nurse Practitioner Family
DX: Z12.31 Encounter for screening mammogram for malignant neoplasm of breast (principal); R92.323 Mammographic fibroglandular density, bilateral breasts; R92.1 Mammographic calcification found on diagnostic imaging of breast
CPT/HCPCS: 77063; 77067

== ENCOUNTER → 2024-10-27 08:29 | Outpatient (BNVA) | payer MEDICAID, SELFPAY | PROVIDERS: Family Provider Nurse Practitioner Family; PCP Nurse Practitioner Family; Visit Provider Nurse Practitioner Family | DX: E03.9 Hypothyroidism, unspecified (principal); R73.03 Prediabetes; E78.2 Mixed hyperlipidemia | CPT/HCPCS: 80053; 80061; 82043; 82306; 83036; 84443; 85025 ==

== ENCOUNTER → 2025-01-30 08:18 | Outpatient (BNVA) | payer MEDICAID, SELFPAY | PROVIDERS: Family Provider Nurse Practitioner Family; PCP Nurse Practitioner Family; Visit Provider Nurse Practitioner Family | DX: E11.9 Type 2 diabetes mellitus without complications (principal); E55.9 Vitamin D deficiency, unspecified; E03.9 Hypothyroidism, unspecified; E78.2 Mixed hyperlipidemia | CPT/HCPCS: 80053; 80061; 82306; 83036; 84443; 85025 ==

== ENCOUNTER 2025-03-08 14:59 | Emergency (ER) | payer MEDICAID, SELFPAY ==
[2025-03-08 15:05] VITALS: BP 156/77; PULSE 85; RESP 18; TEMP 36.9; O2SAT 95
--- NOTE | 2025-03-08 15:27 | W.ED.ANIMALB ---
HPI - Animal Bite General: Chief Complaint: Animal Bite Stated Complaint: stray cat bite left hand Time Seen by Provider: 03/08/25 15:16 Source: patient Mode of arrival: ambulatory Limitations: no limitations History of Present Illness: Patient is a very nice 64-year-old female who presents to ED today for evaluation of a cat bite involving her left hand. Patient states yesterday she was helping a stray cat she was tangled up in a flowerpot when the animal bit and scratched her to the left hand. She states she was seen at the [facility] Department today and received a tetanus immunization. She was instructed to come to the emergency department to initiate rabies PEP. Patient has not noticed any redness or swelling thus far to the cat bite. MD complaint: animal bite Onset (ago): day(s) (yesterday) Animal: cat Description of animal: unknown animal and immunizations unknown Mechanism: bite and scratch Location - Extremities: Left: hand Context: provoked Associated symptoms: Reports no associated symptoms; Deny chills or fever(s) Treatments prior to arrival: irrigation Related Data Home Medications ?Medication ?Instructions ?Recorded ?Confirmed jessicaa root extract 300 mg mg PO 11/04/24 02/01/25 capsule Previous Rx's ?Medication ?Instructions ?Recorded oxycodone 10 mg tablet 10 mg PO TID PRN pain 30 days #70 09/18/21 Held on 12/22/22. tabs Instructions: Resume on 12/27/22. pregabalin 100 mg capsule 100 mg PO BID neuropathy 30 days 09/18/21 #60 caps albuterol sulfate 90 mcg/actuation 2 puff inhalation QID PRN 03/30/24 aerosol inhaler shortness of breath or wheezing #8.5 grams escitalopram oxalate 20 mg tablet 20 mg PO DAILY 90 days #90 tabs 11/04/24 (Lexapro) fenofibrate 160 mg tablet 160 mg PO DAILY 90 days #90 tabs 11/04/24 fluticasone propionate 110 1 puff inhalation BID #12 grams 11/04/24 mcg/actuation HFA aerosol inhaler levothyroxine 100 mcg tablet 100 mcg PO DAILY 90 days #90 tabs 11/04/24 pravastatin 20 mg tablet 20 mg PO DAILY 90 days #90 tabs 11/04/24 cetirizine 10 mg tablet 10 mg PO DAILY 90 days #90 tabs 11/22/24 ergocalciferol (vitamin D2) 1,250 1,250 mcg PO .weekly #12 caps 01/31/25 mcg (50,000 unit) capsule amoxicillin 875 mg-potassium 1 tab PO BID #14 tabs 03/08/25 clavulanate 125 mg tablet Allergies Allergy/AdvReac Type Severity Reaction Status Date / Time metformin Allergy syncopal Verified 03/08/25 15:10 episode Sulfa (Sulfonamide AdvReac unknown Verified 03/08/25 15:10 Antibiotics) trazodone AdvReac makes Verified 03/08/25 15:10 her mean Review of Systems Const: Denies: fever(s), chills, body aches, fatigue or malaise Musc: Reports: extremity pain; Denies: extremity swelling, joint pain, joint swelling or joint redness Skin/Breast: Reports: other (cat bite L hand) Neuro: Denies: numbness in extremities or sensory changes PFSH ED PFSH: Medical History Type 2 diabetes mellitus Chronic left SI joint pain Arthralgia Encounter for long-term opiate analgesic use Cervical spondylosis with myelopathy and radiculopathy Long-term use of high-risk medication continue to monitor use of medication Lumbar spine pain Surgical History History of incisional hernia repair Hx of cholecystectomy Hx of dilation and curettage S/P tubal ligation Hx of section S/P hysterectomy Cervical cancer Family History Mother , M/I CAD (coronary artery disease), Onset Age: 60 Hyperlipidemia Hypertension Rheumatoid arthritis Myocardial infarction Father Stroke Daughter Rheumatoid arthritis Family/Other Cancer Denies family history of Diabetes Clotting disorder Dementia Chronic kidney disease (CKD) Suicide Anesthesia complication Bleeding disorder Lung disease Social History Smoking and tobacco/nicotine status: never used tobacco/nicotine Second hand smoke exposure: No Alcohol intake: never Substance/Drug Use: never Physical Exam Const: COMMON NORMALS: no acute distress, average body habitus, no limitations, healthy appearing, alert and well nourished Extremity: COMMON NORMALS: full ROM and capillary refill normal GENERAL: Yes normal exam except as noted LEFT UPPER EXTREMITY: Yes hand & digits (two small punctures palmar L hand w/o erythema or edema; no drainage) Left hand and digits: Yes inspection (superficial scratches dorsum L hand w/o redness), Yes ROM (full painless ROM), Yes neurovascular exam (normal) and Yes tendon exam (normal) Neuro: COMMON NORMALS: moves all extremities, no focal motor deficits and no sensory deficits noted SENSORIUM/ORIENTATION: Yes alert Skin: NARRATIVE SKIN EXAM: see above Course Vital Signs: Vital signs: Vital Signs Temperature 98.5 F 03/08/25 15:05 Pulse Rate 85 03/08/25 15:05 Respiratory Rate 18 03/08/25 15:05 Blood Pressure 156/77 03/08/25 15:05 Pulse Oximetry 95 03/08/25 15:05 Oxygen Delivery Me thod Room Air 03/08/25 15:05 MDM - Animal Bite Medical Decision Making Tetanus was updated at the health department. She will be started on rabies PEP. Will place on antibiotics. Wound care/infection precautions discussed. Differential Diagnosis Likely cat bite Medical Records I reviewed the patient's medical records. No radiology studies performed this visit Discharge Plan Discharge Patient Disposition: Home Clinical Impression: Need for post exposure prophylaxis for rabies Cat bite of left hand Qualifiers: Encounter type: initial encounter Qualified Code(s): S61.452A - Open bite of left hand, initial encounter Condition: Stable Prescriptions: New amoxicillin-pot clavulanate 875-125 mg tablet 1 tab PO BID Qty: 14 0RF No Action oxycodone 10 mg tablet 10 mg PO TID PRN (Reason: pain) 30 Days Qty: 70 0RF Rx Instructions: fill on or after 09/22/21 pregabalin 100 mg capsule 100 mg PO BID 30 Days Qty: 60 1RF pravastatin 20 mg tablet 20 mg PO DAILY 90 Days Qty: 90 1RF ashwagandha root extract 300 mg capsule PO levothyroxine 100 mcg tablet 100 mcg PO DAILY 90 Days Qty: 90 1RF fenofibrate 160 mg tablet 160 mg PO DAILY 90 Days Qty: 90 1RF escitalopram oxalate [Lexapro] 20 mg tablet 20 mg PO DAILY 90 Days Qty: 90 1RF fluticasone propionate 110 mcg/actuation HFA aerosol inhaler 1 puff inhalation BID Qty: 12 2RF albuterol sulfate 90 mcg/actuation HFA aerosol inhaler 2 puff inhalation QID PRN (Reason: shortness of breath or wheezing) Qty: 8.5 4RF cetirizine 10 mg tablet 10 mg PO DAILY 90 Days Qty: 90 1RF ergocalciferol (vitamin D2) 1,250 mcg (50,000 unit) capsule 1,250 mcg PO .weekly Qty: 12 0RF Discharge Orders: Discharge ED (Routine); Ordered 03/08/25 Ordered By: Ximena Kern Referrals: Dorothy Quintana FNP [Primary Care Provider, Family Practice] Patient Instructions: Rabies Vaccine (By injection), Rabies Immune Globulin (By injection), Animal Bite (ED), Patient Portal & Kim Instructions Activity Restrictions/Additional Instructions: Fill your antibiotics and start them immediately. You were given a dose prior to discharge today. Your tetanus is already been updated. You have been started on the rabies postexposure prophylaxis series. You should have been given a schedule at time of discharge for the dates of the remainder of the shots. Monitor cat bite for signs of infection such as worsening pain, redness, swelling, drainage, streaking up your hand or forearm, fevers, or any other concerns you may have. Please seek medical reevaluation if these occur. Print Language: Tuvaluan Coding Level of Care Code ED [employer] for Valerie Daniel
[2025-03-08] MEDS: amoxicillin-clav 875-125 mg Tablet 1 TAB PO (16:01)
[2025-03-08] MEDS: rabies vaccine 2.5 unit SDV IM (16:02)
[2025-03-08] MEDS: rabies IG 300 unit/mL SDV 1 mL 1620 UNIT IM (16:04)
== END 2025-03-08 16:21 | disposition home or self-care (01) ==
PROVIDERS: Emergency Provider Physician Assistant; PCP Nurse Practitioner Family
DX: S61.452A Open bite of left hand, initial encounter (principal); Z20.3 Contact with and (suspected) exposure to rabies; Z29.14 Encounter for prophylactic rabies immune globulin; W55.01XA Bitten by cat, initial encounter; E11.9 Type 2 diabetes mellitus without complications
CPT/HCPCS: 90375; 90471; 90675; 96372; 99283; J9999

== ENCOUNTER 2025-03-12 09:38 | Emergency (ER) | payer MEDICAID, SELFPAY ==
[2025-03-12 09:49] VITALS: BP 139/85; PULSE 72; TEMP 36.7; O2SAT 95
--- NOTE | 2025-03-12 10:35 | W.ED.RECABL ---
HPI - Recheck/Abnormal Lab/Rx General: Chief Complaint: Recheck/Abnormal Lab/Rx Stated Complaint: rabies follow up Time Seen by Provider: 03/12/25 10:00 History of Present Illness: Patient presents complaining of need for repeat rabies vaccination. Patient had a cat scratch and cat bite to her left hand on the of this month. She states that it is healing well and not bothering her. No fever. She denies any immune suppressed. She states she may have diet-controlled diabetes. She states that she is on Augmentin. She states she received her tetanus shot and she received the rabies prophylaxis. She states she feels fine. No swollen lymph nodes. No fever spreading rash redness or swelling or soreness of the hand. Related Data Home Medications ?Medication ?Instructions ?Recorded ?Confirmed ashwagandha root extract 300 mg mg PO 11/04/24 02/01/25 capsule Previous Rx's ?Medication ?Instructions ?Recorded oxycodone 10 mg tablet 10 mg PO TID PRN pain 30 days #70 09/18/21 Held on 12/22/22. tabs Instructions: Resume on 12/27/22. pregabalin 100 mg capsule 100 mg PO BID neuropathy 30 days 09/18/21 #60 caps albuterol sulfate 90 mcg/actuation 2 puff inhalation QID PRN 03/30/24 aerosol inhaler shortness of breath or wheezing #8.5 grams escitalopram oxalate 20 mg tablet 20 mg PO DAILY 90 days #90 tabs 11/04/24 (Lexapro) fenofibrate 160 mg tablet 160 mg PO DAILY 90 days #90 tabs 11/04/24 fluticasone propionate 110 1 puff inhalation BID #12 grams 11/04/24 mcg/actuation HFA aerosol inhaler levothyroxine 100 mcg tablet 100 mcg PO DAILY 90 days #90 tabs 11/04/24 pravastatin 20 mg tablet 20 mg PO DAILY 90 days #90 tabs 11/04/24 cetirizine 10 mg tablet 10 mg PO DAILY 90 days #90 tabs 11/22/24 ergocalciferol (vitamin D2) 1,250 1,250 mcg PO .weekly #12 caps 01/31/25 mcg (50,000 unit) capsule amoxicillin 875 mg-potassium 1 tab PO BID #14 tabs 03/08/25 clavulanate 125 mg tablet Allergies Allergy/AdvReac Type Severity Reaction Status Date / Time metformin Allergy syncopal Verified 03/12/25 09:56 episode Sulfa (Sulfonamide AdvReac unknown Verified 03/12/25 09:56 Antibiotics) trazodone AdvReac makes Verified 03/12/25 09:56 her mean PFSH ED PFSH: Medical History Type 2 diabetes mellitus Chronic left SI joint pain Arthralgia Encounter for long-term opiate analgesic use Cervical spondylosis with myelopathy and radiculopathy Long-term use of high-risk medication continue to monitor use of medication Lumbar spine pain Surgical History History of incisional hernia repair Hx of cholecystectomy Hx of dilation and curettage S/P tubal ligation Hx of section S/P hysterectomy Cervical cancer Family History Mother , M/I CAD (coronary artery disease), Onset Age: 60 Hyperlipidemia Hypertension Rheumatoid arthritis Myocardial infarction Father Stroke Daughter Rheumatoid arthritis Family/Other Cancer Denies family history of Diabetes Clotting disorder Dementia Chronic kidney disease (CKD) Suicide Anesthesia complication Bleeding disorder Lung disease Social History Smoking and tobacco/nicotine status: never used tobacco/nicotine Second hand smoke exposure: No Alcohol intake: never Substance/Drug Use: never Physical Exam Narrative: EXAM NARRATIVE: Patient is alert oriented no acute distress. Neck supple. Normal skin coloration. She has an abrasion that appears well-healing on the back of her left hand and a small healing puncture wound on the volar aspect of the hand. No swelling or tenderness or erythema. She moves her fingers without difficulty. No proximal swelling. She is breathing comfortably. Heart is regular rhythm lung sounds are clear. Speech is normal. Normal gait. Normal sensorium. Course Vital Signs: Vital signs: Vital Signs Temperature 98.1 F 03/12/25 09:49 Pulse Rate 72 03/12/25 09:49 Blood Pressure 139/85 03/12/25 09:49 Pulse Oximetry 95 03/12/25 09:49 Oxygen Delivery Me thod Room Air 03/12/25 09:49 MDM - Recheck/Abnormal Lab/Rx Medical Decision Making Patient presents for her repeat rabies vaccination. Today is day 4. Will administer the rabies vaccination and have her come back on day 8 and 15. Advised patient signs of infection to watch and return for. Patient agrees with plan after informed discussion. No signs of concerning worsening infection or deep space infection at this time. History not suggestive of retained foreign body by exam and history. Advise however close return follow-up instructions No radiology studies performed this visit Discharge Plan Discharge Patient Disposition: Home Clinical Impression: Encounter for repeat administration of rabies vaccination Condition: Stable Prescriptions: No Action oxycodone 10 mg tablet 10 mg PO TID PRN (Reason: pain) 30 Days Qty: 70 0RF Rx Instructions: fill on or after 09/22/21 pregabalin 100 mg capsule 100 mg PO BID 30 Days Qty: 60 1RF pravastatin 20 mg tablet 20 mg PO DAILY 90 Days Qty: 90 1RF ashwagandha root extract 300 mg capsule PO levothyroxine 100 mcg tablet 100 mcg PO DAILY 90 Days Qty: 90 1RF fenofibrate 160 mg tablet 160 mg PO DAILY 90 Days Qty: 90 1RF escitalopram oxalate [Lexapro] 20 mg tablet 20 mg PO DAILY 90 Days Qty: 90 1RF fluticasone propionate 110 mcg/actuation HFA aerosol inhaler 1 puff inhalation BID Qty: 12 2RF albuterol sulfate 90 mcg/actuation HFA aerosol inhaler 2 puff inhalation QID PRN (Reason: shortness of breath or wheezing) Qty: 8.5 4RF cetirizine 10 mg tablet 10 mg PO DAILY 90 Days Qty: 90 1RF ergocalciferol (vitamin D2) 1,250 mcg (50,000 unit) capsule 1,250 mcg PO .weekly Qty: 12 0RF amoxicillin-pot clavulanate 875-125 mg tablet 1 tab PO BID Qty: 14 0RF Discharge Orders: Discharge ED (Routine); Ordered 03/12/25 Ordered By: Yan Horne Referrals: Dorothy Quintana FNP [Primary Care Provider, Family Practice] Patient Instructions: Opioid Safety, Pain Management, Patient Portal & Kim Instructions Activity Restrictions/Additional Instructions: Please return for repeat rabies vaccination on day 8 and day 15 from the date of your first vaccination which is considered day 0. Come back if fever, increased pain swelling or redness of your arm or hand, swollen lymph nodes, not feeling well, any concerns. Print Language: Honduran Coding Level of Care Code ED [employer] for Valerie Daniel
[2025-03-12] MEDS: rabies vaccine 2.5 unit SDV IM (10:49)
== END 2025-03-12 10:58 | disposition home or self-care (01) ==
PROVIDERS: Emergency Provider Emergency Medicine; PCP Nurse Practitioner Family
DX: Z20.3 Contact with and (suspected) exposure to rabies (principal); Z29.14 Encounter for prophylactic rabies immune globulin
CPT/HCPCS: 90471; 90675; 99283

== ENCOUNTER 2025-03-22 10:45 | Oncology outpatient (recurring) (ONCR) | payer MEDICAID, SELFPAY ==
[2025-03-15] MEDS: rabies vaccine 2.5 unit SDV IM (14:31)
[2025-03-15 14:36] VITALS: BP 152/4; PULSE 74
[2025-03-22] MEDS: rabies vaccine 2.5 unit SDV IM (10:03)
[2025-03-22 10:07] VITALS: BP 127/78; PULSE 72; TEMP 36.7; O2SAT 95
== END 2025-04-13 23:59 | disposition home or self-care (01) ==
PROVIDERS: PCP Nurse Practitioner Family; Visit Provider Physician Assistant
DX: Z53.9 Procedure and treatment not carried out, unspecified reason (principal); Z23 Encounter for immunization; Z20.3 Contact with and (suspected) exposure to rabies; T14.8XXA Other injury of unspecified body region, initial encounter; X58.XXXA Exposure to other specified factors, initial encounter
CPT/HCPCS: 90471; 90675

== ENCOUNTER → 2025-05-03 09:25 | Outpatient (BNVA) | payer MEDICAID, SELFPAY | PROVIDERS: PCP Nurse Practitioner Family; Visit Provider Nurse Practitioner Family | DX: E11.9 Type 2 diabetes mellitus without complications (principal); E55.9 Vitamin D deficiency, unspecified | CPT/HCPCS: 80053; 80061; 82306; 82607; 83036; 84443; 85025 ==

== ENCOUNTER → 2025-05-23 09:00 | Outpatient (BNVA) | payer MEDICAID, SELFPAY | PROVIDERS: PCP Nurse Practitioner Family; Visit Provider Nurse Practitioner Family | DX: E78.2 Mixed hyperlipidemia (principal) | CPT/HCPCS: 80048 ==

== ENCOUNTER 2025-07-27 12:06 | Outpatient (CLI) | payer MEDICAID, SELFPAY ==
--- NOTE | 2025-07-27 12:11 | MM_ITS ---
WS: [id number] BILATERAL SCREENING DIGITAL TOMOSYNTHESIS MAMMOGRAM WITH CAD HISTORY: SCREENING COMPARISON: 07/22/2024, 07/15/2023, 02/10/2019 Bilateral CC and MLO views with tomosynthesis and synthetic mammography submitted. Computer aided detection analyzed. Breast composition: There are scattered areas of fibroglandular density. No suspicious masses, microcalcifications or architectural distortion. Cluster of nodules in the central LEFT breast stable over multiple prior years. No new or suspicious masses or calcifications. MM/MM scr BI tomosynthesis [id number] IMPRESSION: BI-RADS: 2 - Benign. FOLLOW UP: 1 Year Follow-up
== END 2025-07-27 12:07 | disposition home or self-care (01) ==
LOC: RAD 12:08
PROVIDERS: PCP Nurse Practitioner Family; Visit Provider Nurse Practitioner Family
DX: Z12.31 Encounter for screening mammogram for malignant neoplasm of breast (principal); R92.323 Mammographic fibroglandular density, bilateral breasts; N64.89 Other specified disorders of breast
CPT/HCPCS: 77063; 77067